=== PATIENT | male | born 1990 | race Caucasian/White ===

== ENCOUNTER 2017-12-01 06:57 | Emergency (ER) | payer SELFPAY ==
--- NOTE | 2017-12-01 07:10 | ER Document Report ---
HPI - HPI Patient complains to provider of: Urinary frequency and urgency Onset: Other - Onset/Duration: Persistent Pain Level: 0 Context: 27-year-old male complaining of urinary frequency and urgency. No dysuria or penile discharge. No testicular pain or swelling. No perineal pain. Similar symptoms last year that were resolved with amoxicillin that he got from a friend. No history of STD, female partner. No fever or chills. No nausea vomiting. No abdominal pelvic or flank pain. No polydipsia polyphagia or weight loss. Exacerbated by: Denies Relieved by: Other - See above Similar symptoms previously: Yes Recently seen / treated by doctor: No - ROS ROS below otherwise negative: Yes Systems Reviewed and Negative: Yes All other systems reviewed and negative - URINARY Urinary: REPORTS: Urgency, Frequency Past Medical History - General Information source: Patient - Social History Smoking Status: Unknown if Ever Smoked Frequency of alcohol use: None Drug Abuse: None Lives with: Spouse/Significant other Family History: Malignancy - skin Patient has suicidal ideation: No Patient has homicidal ideation: No - Medical History Medical History: Negative Renal/ Medical History: Denies: Hx Peritoneal Dialysis Surgical Hx: Negative - Immunizations Immunizations up to date: No Hx Diphtheria, Pertussis, Tetanus Vaccination: No Vertical Provider Document - CONSTITUTIONAL Agree With Documented VS: Yes Exam Limitations: No Limitations - INFECTION CONTROL TRAVEL OUTSIDE OF THE [place] IN LAST 30 DAYS: No - HEENT HEENT: Normocephalic - NECK Neck: Supple - RESPIRATORY O2 Sat by Pulse Oximetry: 98 - GI/ABDOMEN Gastrointestinal: Abdomen Soft, Abdomen Non-Tender, No Organomegaly - BACK Back: Normal Inspection. negative: CVA Tenderness-Right, CVA Tenderness-Left - NEURO Level of Consciousness: Awake, Alert - DERM Integumentary: Warm, Dry, No Rash Course - Re-evaluation Re-evalutation: 12/01/17 07:42 Urinalysis is only positive for nitrite but he took Azo [id number] this morning. He also took 3 amoxicillin yesterday and 1 today. We discussed doing further examination including a prostate exam because this could be a symptom of prostate inflammation or infection and he does not want a rectal exam. He will try the antibiotics and take the urologist referral. - Vital Signs Vital signs: Temp Pulse Resp BP Pulse Ox 97.6 F 77 16 141/88 H 98 12/01/17 06:58 12/01/17 06:58 12/01/17 06:58 12/01/17 06:58 12/01/17 06:58 Discharge - Discharge Clinical Impression: Urinary frequency Condition: Good Disposition: HOME, SELF-CARE Instructions: Urinary Tract Infection ([facility]), Doxycycline ([facility]) Additional Instructions: see the urologist if symptoms persists urine culture is pending to er if symptoms worsen Prescriptions: Doxycycline Hyclate 100 mg PO BID #14 tablet Forms: Return to Work Referrals: LOLIS HARDING MD [[facility]] - Follow up as needed
[2017-12-01 07:19] LABS: APPEARANCE,URINE CLEAR; BILIRUBIN,URINE NEGATIVE (NEGATIVE); GLUCOSE, URINE NEGATIVE (NEGATIVE); KETONES,URINE NEGATIVE (NEGATIVE); LEUKOCYTE ESTERASE,URINE NEGATIVE (NEGATIVE); NITRITE,URINE POSITIVE (NEGATIVE); PROTEIN,URINE NEGATIVE (NEGATIVE); URINE SPECIFIC GRAVITY 1.003
[2017-12-01 07:21] LABS: COLOR,URINE YELLOW
[2017-12-01 08:23] VITALS: BP 132/92
== END 2017-12-01 08:23 | disposition home or self-care (01) ==
LOC: ER 06:57
DX: R35.0 Frequency of micturition (principal); R39.15 Urgency of urination
CPT/HCPCS: 81001; 87086; 99283

== ENCOUNTER 2018-06-16 20:31 | Emergency (ER) | payer SELFPAY ==
[2018-06-16 20:38] VITALS: BP 122/92
[2018-06-16] MEDS ORDERED: DIPH/PERTUSS(ACELL)/TETANUS VAC/PF 0.5 ML SYR (>=10YO) IM ONE (20:47)
[2018-06-16] MEDS ORDERED: AMOXICILLIN TR/POT CLAVULANATE 500-125 MG TAB PO ONE (20:47)
[2018-06-16] MEDS ORDERED: LIDOCAINE 1% INJ (10 MG/ML) 10 ML MDV INJ ONE (20:48)
--- NOTE | 2018-06-16 20:50 | ER Document Report ---
ED Medical Screen (RME) - General Chief Complaint: Dog Bite Stated Complaint: HAND PAIN Time Seen by Provider: 06/16/18 20:47 Mode of Arrival: Ambulatory Information source: Patient Notes: Patient was beating on the dorsum of the right hand by a pit bull. He sustained lacerations on the dorsum of the right hand. Antibiotics and tetanus update is ordered. Patient will need laceration repair. I have greeted and performed a rapid initial assessment of this patient. A comprehensive ED assessment and evaluation of the patient, analysis of test results and completion of the medical decision making process will be conducted by additional ED providers. TRAVEL OUTSIDE OF THE [place] IN LAST 30 DAYS: No - Related Data Allergies/Adverse Reactions: No Known Allergies Allergy (Verified 02/18/13 10:42) Past Medical History Renal/ Medical History: Denies: Hx Peritoneal Dialysis - Immunizations Immunizations up to date: No Hx Diphtheria, Pertussis, Tetanus Vaccination: No Physical Exam - Vital signs Vitals: Temp Pulse Resp BP Pulse Ox 98 F 94 16 122/92 H 100 06/16/18 20:37 06/16/18 20:37 06/16/18 20:37 06/16/18 20:37 06/16/18 20:37 Course - Vital Signs Vital signs: Temp Pulse Resp BP Pulse Ox 98 F 94 16 122/92 H 100 06/16/18 20:37 06/16/18 20:37 06/16/18 20:37 06/16/18 20:37 06/16/18 20:37
--- NOTE | 2018-06-16 21:33 | ER Document Report ---
ED General - General Chief Complaint: Dog Bite Stated Complaint: HAND PAIN Time Seen by Provider: 06/16/18 20:47 Mode of Arrival: Ambulatory Notes: Patient is a 27-year-old male without past medical history who presents after being bitten by dog on the right hand. This occurred just prior to arrival. Patient came directly to the emergency department. He is uncertain of the vaccination status of the dog. Does note a burning, stinging pain. Nothing improves or worsens that pain. History is otherwise limited as the patient is quite agitated and uncooperative TRAVEL OUTSIDE OF THE [place] IN LAST 30 DAYS: No - Related Data Allergies/Adverse Reactions: No Known Allergies Allergy (Verified 02/18/13 10:42) Past Medical History - General Information source: Patient - Social History Smoking Status: Current Every Day Smoker Frequency of alcohol use: Rare Drug Abuse: None Lives with: Spouse/Significant other Family History: Malignancy - skin Patient has suicidal ideation: No Patient has homicidal ideation: No Renal/ Medical History: Denies: Hx Peritoneal Dialysis - Immunizations Immunizations up to date: No Hx Diphtheria, Pertussis, Tetanus Vaccination: No Review of Systems - Review of Systems Notes: Constitutional: Negative for fever. Eyes: Negative for visual changes. ENT: Negative for facial injury Cardiovascular: Negative for chest injury. Respiratory: Negative for shortness of breath. Gastrointestinal: Negative for abdominal injury. Genitourinary: Negative for genital injury Musculoskeletal: Positive for right hand injury Skin: Positive for laceration/abrasions. Neurological: Negative for head injury. Physical Exam - Vital signs Vitals: Temp Pulse Resp BP Pulse Ox 98 F 94 16 122/92 H 100 06/16/18 20:37 06/16/18 20:37 06/16/18 20:37 06/16/18 20:37 06/16/18 20:37 Interpretation: Normal Notes: PHYSICAL EXAMINATION: GENERAL: Well-appearing, well-nourished and in no acute distress. HEAD: Atraumatic, normocephalic. EYES: sclera anicteric, conjunctiva are normal. ENT: Moist mucous membranes. NECK: Normal range of motion LUNGS: Normal work of breathing HEART: 2+ radial pulses bilaterally EXTREMITIES: no pitting or edema. No cyanosis. Full flexion and extension against resistance in all digits of the right hand NEUROLOGICAL: No focal neurological deficits. Moves all extremities spontaneously and on command. PSYCH: Somewhat agitated, SKIN: Warm, Dry, normal turgor, there are multiple superficial lacerations over the dorsum of the right hand without active bleeding Course - Re-evaluation Re-evalutation: 06/16/18 21:29 Patient presents with multiple superficial lacerations over the dorsum of the right hand. Patient apparently was bit by a dog just prior to arrival. Given that this is a dog bite the wounds will not be repaired with stitches. The patient became very agitated with this, stating that he should not of come. I did attempt to explain to the patient why for risk of infection we would not close a dog bite particularly on the hand. I did advise antibiotic prophylaxis , tetanus update, rabies vaccination all of which the patient declined. He will be leaving AGAINST MEDICAL ADVICE. Full flexion extension of all digits of the right hand noted. - Vital Signs Vital signs: Temp Pulse Resp BP Pulse Ox 98 F 94 16 122/92 H 100 06/16/18 20:37 06/16/18 20:37 06/16/18 20:37 06/16/18 20:37 06/16/18 20:37 Discharge - Discharge Clinical Impression: Refusal of care by patient Dog bite of right hand Qualifiers: Encounter type: initial encounter Qualified Code(s): S61.451A - Open bite of right hand, initial encounter; W54.0XXA - Bitten by dog, initial encounter; W54.0XXA - Bitten by dog, initial encounter Condition: Good Disposition: AGAINST MEDICAL ADVICE
== END 2018-06-16 21:28 | disposition left against medical advice (07) ==
LOC: ER 20:31
DX: S60.571A Other superficial bite of hand of right hand, initial encounter (principal); W54.0XXA Bitten by dog, initial encounter
CPT/HCPCS: 99283